=== PATIENT | female | born 1995 | race Caucasian/White ===

== ENCOUNTER 2019-02-10 15:28 | Emergency (ER) | payer BC ==
[~2019-02-10] VITALS: Ht 160 cm; Wt 61.2 kg
[2019-02-10] MEDS ORDERED: PREDNISONE20 M1 PO (16:08)
== END 2019-02-10 16:40 | disposition home or self-care (01) ==
LOC: ED 15:28
DX: M25.462 Effusion, left knee (principal); M06.9 Rheumatoid arthritis, unspecified; M79.7 Fibromyalgia; L40.9 Psoriasis, unspecified

== ENCOUNTER → 2019-10-05 | Outpatient (CLI) | payer OTHER ==
[~2019-10-05] MED LIST: PREDNISONE20 M1 PO
== END | disposition home or self-care (01) ==
LOC: US 13:51
DX: C73 Malignant neoplasm of thyroid gland (principal)

== ENCOUNTER → 2019-12-10 | Outpatient (CLI) | payer OTHER ==
[2019-12-10 13:21] LABS: ALKALINE PHOSPHATASE 81 U/L (45-117); BUN 19 mg/dl (7-24); CHLORIDE 108 mmol/L (98-107); CHOLESTEROL 127 mg/dL (<200); CREATININE 0.73 mg/dL (0.55-1.02); HDL CHOLESTEROL 41 mg/dl (40-60); LDL CHOLESTEROL 68 mg/dL (9-159); POTASSIUM 4.4 mmol/L (3.5-5.1); SGOT/AST 5 IU/L (3-35); SGPT/ALT 10 U/L (12-78); SODIUM 140 mmol/L (136-145); TOTAL PROTEIN 7.5 gm/dL (6.4-8.2); TRIGLYCERIDES 92 mg/dl (<150); VLDL CHOLESTEROL 18 mg/dL (6-40)
[2019-12-10 13:25] LABS: MEAN CORPUSCULAR HGB 27.7 pg (27.0-31.0); MEAN PLATELET VOLUME 10.4 fl (9.6-12.3); RED BLOOD COUNT 4.76 10*6/uL (4.10-5.10); RED CELL DISTRI WIDTH 12.6 % (0-14.5); WHITE BLOOD COUNT 10.2 10*3/uL (4.8-10.8)
== END | disposition home or self-care (01) ==
LOC: LAB 12:26
PROVIDERS: ATTEND Family Medicine
DX: Z13.220 Encounter for screening for lipoid disorders (principal); M19.90 Unspecified osteoarthritis, unspecified site; F41.1 Generalized anxiety disorder; F17.200 Nicotine dependence, unspecified, uncomplicated

== ENCOUNTER → 2019-12-17 | Outpatient (CLI) | payer OTHER ==
[2019-12-18 07:10] LABS: HEP B CORE AB, IGM Negative (Negative); HEPATITIS B SURFACE AG Negative (Negative); HEPATITIS C VIRUS ANTIBODY <0.1 (0.0-0.9)
[2019-12-18 09:07] LABS: RHEUMATOID ARTHRITIS FACTOR <10.0 IU/mL (0.0-13.9)
[2019-12-19 20:06] LABS: CCP ANTIBODIES IGG/IGA 4 units (0-19)
== END | disposition home or self-care (01) ==
LOC: LAB 13:39
PROVIDERS: ATTEND Family Medicine
DX: M25.50 Pain in unspecified joint (principal)

== ENCOUNTER → 2020-02-16 | Outpatient (CLI) | payer OTHER ==
[2020-02-16 10:13] LABS: FREE T4 0.9 ng/dl (0.76-1.46)
[2020-02-16 10:18] LABS: THYROID STIM HORMONE (HS) 7.66 uIU/ml (0.358-4.75)
== END | disposition home or self-care (01) ==
LOC: LAB 09:29
PROVIDERS: ATTEND Nurse Practitioner Family
DX: E03.9 Hypothyroidism, unspecified (principal); R53.83 Other fatigue; M25.561 Pain in right knee; M25.562 Pain in left knee

== ENCOUNTER → 2020-06-29 | Outpatient (CLI) | payer OTHER ==
[2020-06-29 10:21] LABS: MEAN CELL VOLUME 87.9 fl (81.0-99.0); MEAN CORPUSCULAR HGB 28.2 pg (27.0-31.0); MEAN CORPUSCULAR HGB CONC 32.1 g/dl (33.0-37.0); RED BLOOD COUNT 4.78 10*6/uL (4.10-5.10); RED CELL DISTRI WIDTH 12.9 % (0-14.5); WHITE BLOOD COUNT 8.9 10*3/uL (4.8-10.8)
[2020-06-29 10:43] LABS: CHLORIDE 110 mmol/L (98-107); POTASSIUM 3.9 mmol/L (3.5-5.1); SODIUM 140 mmol/L (136-145)
[2020-06-29 10:59] LABS: ALBUMIN 3.9 gm/dl (3.1-4.5); ALKALINE PHOSPHATASE 71 U/L (45-117); BUN 18 mg/dl (7-24); CHOLESTEROL 121 mg/dL (<200); CREATININE 0.68 mg/dL (0.55-1.02); FREE T4 1.21 ng/dl (0.76-1.46); HDL CHOLESTEROL 60 mg/dl (40-60); LDL CHOLESTEROL 49 mg/dL (9-159); SGOT/AST 17 IU/L (3-35); SGPT/ALT 27 U/L (12-78); TRIGLYCERIDES 59 mg/dl (<150); VLDL CHOLESTEROL 12 mg/dL (6-40)
== END | disposition home or self-care (01) ==
LOC: LAB 09:57
PROVIDERS: ATTEND Nurse Practitioner Family
DX: F41.9 Anxiety disorder, unspecified (principal); E89.0 Postprocedural hypothyroidism

== ENCOUNTER 2021-01-23 10:08 | Emergency (ER) | payer BC ==
[~2021-01-23] VITALS: Ht 162.5 cm; Wt 59.0 kg
[2021-01-23] MEDS ORDERED: AMOXICILLIN500 M2 PO (10:42)
== END 2021-01-23 11:20 | disposition home or self-care (01) ==
LOC: ED 10:08
DX: H66.92 Otitis media, unspecified, left ear (principal)

== ENCOUNTER → 2021-02-26 | Outpatient (CLI) | payer BC, OTHER ==
[~2021-02-26] MED LIST changes: +AMOXICILLIN500 M2 PO
[2021-02-26 08:12] LABS: HEMATOCRIT 38.1 % (37.0-47.0); MEAN CELL VOLUME 86.2 fl (81.0-99.0); MEAN CORPUSCULAR HGB 28.7 pg (27.0-31.0); MEAN CORPUSCULAR HGB CONC 33.3 g/dl (33.0-37.0); MEAN PLATELET VOLUME 9.8 fl (9.6-12.3); RED BLOOD COUNT 4.42 10*6/uL (4.10-5.10); RED CELL DISTRI WIDTH 12.3 % (0-14.5); WHITE BLOOD COUNT 9.2 10*3/uL (4.8-10.8)
[2021-02-26 08:29] LABS: ALBUMIN 3.3 gm/dl (3.1-4.5); ALKALINE PHOSPHATASE 79 U/L (45-117); BUN 22 mg/dl (7-24); CHLORIDE 110 mmol/L (98-107); CREATININE 0.79 mg/dL (0.55-1.02); POTASSIUM 3.5 mmol/L (3.5-5.1); SGOT/AST 10 IU/L (3-35); SGPT/ALT 20 U/L (12-78); SODIUM 140 mmol/L (136-145)
[2021-02-26 08:37] LABS: FREE T4 0.89 ng/dl (0.76-1.46)
== END | disposition home or self-care (01) ==
LOC: LAB 07:56
PROVIDERS: ATTEND Family Medicine
DX: F41.1 Generalized anxiety disorder (principal); E74.00 Glycogen storage disease, unspecified; E03.9 Hypothyroidism, unspecified

== ENCOUNTER → 2021-11-02 | Outpatient (CLI) | payer OTHER ==
[2021-11-02 08:00] LABS: HEMATOCRIT 43.8 % (37.0-47.0); MEAN CELL VOLUME 85.4 fl (81.0-99.0); MEAN CORPUSCULAR HGB 28.3 pg (27.0-31.0); MEAN CORPUSCULAR HGB CONC 33.1 g/dl (33.0-37.0); MEAN PLATELET VOLUME 9.8 fl (9.6-12.3); RED BLOOD COUNT 5.13 10*6/uL (4.10-5.10); RED CELL DISTRI WIDTH 12.6 % (0-14.5); WHITE BLOOD COUNT 8.2 10*3/uL (4.8-10.8)
[2021-11-02 08:17] LABS: ALKALINE PHOSPHATASE 77 U/L (45-117); BUN 21 mg/dl (7-24); CHLORIDE 108 mmol/L (98-107); CHOLESTEROL 170 mg/dL (<200); CREATININE 0.87 mg/dL (0.55-1.02); FREE T4 0.75 ng/dl (0.76-1.46); LDL CHOLESTEROL 99 mg/dL (9-159); POTASSIUM 4.3 mmol/L (3.5-5.1); SGOT/AST 13 IU/L (3-35); SGPT/ALT 20 U/L (12-78); SODIUM 140 mmol/L (136-145); TOTAL PROTEIN 8.1 gm/dL (6.4-8.2); TRIGLYCERIDES 56 mg/dl (<150)
[2021-11-02 10:16] LABS: VITAMIN D, 25-HYDROXY 31.6 ng/mL (30-100)
== END | disposition home or self-care (01) ==
LOC: LAB 07:44
PROVIDERS: ATTEND Family Medicine
DX: F41.1 Generalized anxiety disorder (principal); F90.8 Attention-deficit hyperactivity disorder, other type; E55.9 Vitamin D deficiency, unspecified; E74.00 Glycogen storage disease, unspecified; E03.9 Hypothyroidism, unspecified; R53.83 Other fatigue

== ENCOUNTER 2022-05-31 14:14 | Emergency (ER) | payer MEDICAID ==
[~2022-05-31] VITALS: Wt 59.0 kg
[2022-05-31 15:17] LABS: BASO # 0.1 10*3/uL (0.0-0.1); EOS # 0.8 10*3/uL (0.0-0.4); EOS % 8.4 % (1.0-4.0); HEMATOCRIT 42.5 % (37.0-47.0); LYMPH # 2.8 10*3/uL (1.3-4.4); MEAN CELL VOLUME 85.3 fl (81.0-99.0); MEAN CORPUSCULAR HGB 28.1 pg (27.0-31.0); MEAN CORPUSCULAR HGB CONC 32.9 g/dl (33.0-37.0); MEAN PLATELET VOLUME 9.9 fl (9.6-12.3); MONO # 0.6 10*3/uL (0.1-1.0); MONO % 6.4 % (3.0-9.0); NEUT # 5.4 10*3/uL (2.3-7.9); NEUT % 54.9 % (47.0-73.0); PLATELET COUNT AUTOMATED 268 10*3/uL (130-400); RED BLOOD COUNT 4.98 10*6/uL (4.10-5.10); RED CELL DISTRI WIDTH 12.2 % (0-14.5); WHITE BLOOD COUNT 9.8 10*3/uL (4.8-10.8)
[2022-05-31 15:34] LABS: ALKALINE PHOSPHATASE 67 U/L (46-116); BUN 17 mg/dl (9-23); CHLORIDE 107 mmol/L (98-107); POTASSIUM 3.6 mmol/L (3.4-5.1); SGPT/ALT 12 U/L (10-49); TOTAL PROTEIN 6.8 gm/dL (6.0-8.0)
[2022-05-31] MEDS ORDERED: AMOX-CLAV 875-1 EACH PO (16:47)
[2022-05-31] MEDS ORDERED: PREDNISONE20 M1 PO (16:47)
== END 2022-05-31 17:21 | disposition home or self-care (01) ==
LOC: ED 14:14
PROVIDERS: Physician Assistant
DX: J68.0 Bronchitis and pneumonitis due to chemicals, gases, fumes and vapors (principal); J32.9 Chronic sinusitis, unspecified; Z87.891 Personal history of nicotine dependence; M79.7 Fibromyalgia; F32.A Depression, unspecified; Z20.822 Contact with and (suspected) exposure to COVID-19

== ENCOUNTER → 2023-03-20 | Outpatient (CLI) | payer MEDICAID ==
[~2023-03-20] MED LIST changes: +AMOX-CLAV 875-1 EACH PO
[2023-03-20 11:55] LABS: HEMATOCRIT 46.2 % (37.0-47.0); MEAN CELL VOLUME 86.8 fl (81.0-99.0); MEAN CORPUSCULAR HGB 28.2 pg (27.0-31.0); MEAN CORPUSCULAR HGB CONC 32.5 g/dl (33.0-37.0); MEAN PLATELET VOLUME 9.7 fl (9.6-12.3); RED BLOOD COUNT 5.32 10*6/uL (4.10-5.10); RED CELL DISTRI WIDTH 12.4 % (0-14.5); WHITE BLOOD COUNT 11.4 10*3/uL (4.8-10.8)
[2023-03-20 12:37] LABS: ALKALINE PHOSPHATASE 85 U/L (46-116); BUN 9 mg/dl (9-23); CHLORIDE 103 mmol/L (98-107); FREE T4 0.67 ng/dl (0.89-1.76); POTASSIUM 3.4 mmol/L (3.4-5.1); SGPT/ALT 17 U/L (5-49); TOTAL PROTEIN 8.2 gm/dL (6.0-8.0)
[2023-03-21 08:08] LABS: THYROID PEROXIDASE (TPO) AB <9 IU/mL (0-34)
[2023-03-21 15:06] LABS: THYROGLOBULIN ANTIBODY <1.0 IU/mL (0.0-0.9)
== END | disposition home or self-care (01) ==
LOC: LAB 11:18
PROVIDERS: ATTEND Family Medicine
DX: E03.9 Hypothyroidism, unspecified (principal); E74.00 Glycogen storage disease, unspecified; F41.1 Generalized anxiety disorder; F90.9 Attention-deficit hyperactivity disorder, unspecified type; R63.5 Abnormal weight gain; L68.0 Hirsutism

== ENCOUNTER → 2023-06-18 | Outpatient (CLI) | payer MEDICAID ==
[2023-06-18 15:46] LABS: FREE T4 0.48 ng/dl (0.89-1.76)
== END | disposition home or self-care (01) ==
LOC: LAB 14:35
PROVIDERS: ATTEND Family Medicine
DX: E03.9 Hypothyroidism, unspecified (principal)

== ENCOUNTER → 2024-01-20 | Outpatient (CLI) | payer MEDICAID | END | disposition home or self-care (01) | LOC: RAD 14:43 | PROVIDERS: ATTEND Family Medicine | DX: J40 Bronchitis, not specified as acute or chronic (principal); R05.9 Cough, unspecified; R50.9 Fever, unspecified ==